=== PATIENT | female | born 1950 | race Caucasian/White ===

== ENCOUNTER 2018-08-08 16:24 | Inpatient (IN) ==
[2018-08-09] MEDS ORDERED: Nitroglycerin 0.4 MG TAB.SUBL SL PRN (16:10)
[2018-08-09] MEDS: *HR* OxyCODONE Oral Soln 5 MG/5 ML UD.LIQ PO PRN ×2 (17:53→23:03)
[2018-08-09] MEDS ORDERED: *HR* Rivaroxaban 10 MG TABLET PO SCH (18:00)
[2018-08-09] MEDS: Sennosides/Docusate Sodium TABLET PO SCH (20:30)
[2018-08-09] MEDS: *HR* Rivaroxaban 10 MG TABLET PO SCH (20:30)
[2018-08-09] MEDS: ALPRAZolam 1 MG TABLET PO SCH (20:31)
[2018-08-09] MEDS: Psyllium 1 PACKET POWD.PACK PO SCH (20:35)
[2018-08-09] MEDS: metroNIDAZOLE 500 MG TABLET PO SCH (23:08)
[2018-08-10] MEDS: *HR* OxyCODONE Oral Soln 5 MG/5 ML UD.LIQ PO PRN (09:05)
[2018-08-10] MEDS: ALPRAZolam 1 MG TABLET PO SCH ×2 (09:06→21:39)
[2018-08-10] MEDS: Sennosides/Docusate Sodium TABLET PO SCH ×2 (09:06→21:39)
[2018-08-10] MEDS: Cholecalciferol (D-3) 1,000 UNIT (25MCG) TABLET PO SCH (09:07)
[2018-08-10] MEDS: metroNIDAZOLE 500 MG TABLET PO SCH ×2 (09:07→15:52)
[2018-08-10] MEDS: Psyllium 1 PACKET POWD.PACK PO SCH ×2 (09:07→21:40)
--- NOTE | 2018-08-10 12:33 | Internal Med History&Physical ---
Date of Encounter: 08/10/18 Time of Encounter: 12:00 Assessment and Plan (1) Perforation of colon as colonoscopy complication Current visit: No Status: Acute Status post primary closure procedure 07/31/2018. Continue present Rx. (2) Depression Current visit: Yes Status: Chronic Continue Cymbalta Qualifiers: Depression Type: unspecified Qualified Code(s): F32.9 - Major depressive disorder, single episode, unspecified (3) Anemia Current visit: Yes Status: Acute Check anemia testing in a.m. Qualifiers: Anemia type: unspecified type Qualified Code(s): D64.9 - Anemia, unspecified (4) Anxiety Current visit: No Status: Chronic Continue prn Xanax Internal Medicine - H&P: HPI Chief complaint: Colon perforation repair Admitted From: Hospital to Hospital Transfer Plans for Post Hospital Care: Home History of present illness: Ms. Lion is a 67 year old female who was discharged to [facility] swing bed after a July 30 [facility] hospitalization. She underwent EGD and colonoscopy on July 30. She had iatrogenic colon perforation during polypectomy procedure. She underwent exploratory laparotomy July 31 with primary closure of the perforation. No colon resection was required. Her postop course was unremarkable for complications. She was discharged to [facility] swing bed for rehabilitation therapy prior to returning to independent living. She denies disorders of her liver gallbladder or exocrine pancreas. She has had diarrhea over the preceding months that seemed to improve when she was prescribed MiraLAX. Past Med Surg Social Fam HX - Past Medical History Medical history: arthritis, hyperlipidemia, kidney stones, valvular heart disease Additional medical history: ANXIETY. VALVULAR DISEASE Psychiatric history: anxiety, depression - Past Surgical History Surgical History: breast surgery, cataract, hysterectomy, other Additional surgical history: Bladder tuck, bilateral phlebectomy, heart cath, rectal sling, bilateral PE - Social History Smoking Status: Never smoker Smokeless Tobacco Status: No Alcohol use: none Drug use: none - Family History Mother Living Status: Hx Family Cardiac Disorders: Yes Father Hx Family Cardiac Disorders: Yes Hx Family Endocrine Disorder: Yes Internal Medicine - H&P: Meds Nitroglycerin [Nitrostat] 0.4 mg SL Q5-10MIN PRN 08/06/15 [History] Cholecalciferol (D-3) [Vitamin D] 1,000 unit PO DAILY 12/24/17 [History] Duloxetine HCl [Cymbalta] 60 mg PO HS 12/24/17 [History] Metoprolol [Lopressor] 25 mg PO BID 12/24/17 [History] Simvastatin [Zocor] 20 mg PO HS 12/24/17 [History] Psyllium [Metamucil Fiber Singles Packet] 1 packet PO BID 07/30/18 [History] Rivaroxaban [Xarelto] 20 mg PO DAILY 07/30/18 [History] Ciprofloxacin [Cipro] 500 mg PO BID tablet 08/09/18 [Rx] Sennosides/Docusate Sodium [Senna Plus] 1 each PO BID tablet 08/09/18 [Rx] metroNIDAZOLE [Flagyl] 500 mg PO Q8HR tablet 08/09/18 [Rx] Allergy/AdvReac Type Severity Reaction Status Date / Time Penicillins Allergy Anaphylaxis Verified 07/01/18 15:07 Sulfa (Sulfonamide Allergy Rash Verified 07/01/18 15:07 Antibiotics) All Systems PM: A 10-system review of systems was performed and is negative for pertinent findings except as documented above in the HPI. Review of systems: Gen.: She states her weight has been stable for several months Cardiovascular: She denies hypertension or [place]. LHC 12/21/2017 showed LMCA free of disease, proximal LAD with 15% stenosis, proximal circumflex with 15% stenosis, and proximal RCA with 20% stenosis. No intervention was done. LVEF was 65%. Echocardiogram 12/25/2017 showed LVEF of 55-60%. There was trace tricuspid regurgitation and pulmonic regurgitation. The interventricular septum and posterior wall thickness measurements were 0.81 and 0.82 cm respectively. E/A ratio was 0.9. The patient reports she is on metoprolol for mitral valve prolapse. There was no MVP noted on the December 2017 echocardiogram. She reports pulmonary embolism December 2017. She states her mother of "massive blood clots". Her mother's sister also from DVT/pulmonary embolism. She was placed on Xarelto at the time of diagnosis and has resumed the medication following surgery. Respiratory: She is a lifelong nonsmoker and denies chronic lung disease GI: As per history of present illness : She had kidney stones remotely. She has had bladder lift surgery. She denies other kidney or bladder disorders. Neurologic: She denies large distribution strokes or seizures. Endocrine: She has hyperlipidemia but denies diabetes or thyroid disease Hematology/oncology: She has mild anemia on postoperative labs. She denies known internal malignancies or other blood disorders. Psychiatric: She has anxiety and depression. She denies other mental health diagnoses. Mus[place] skeletal: She has DJD and back pain. She denies gout. - Constitutional Vitals: Temp Pulse Resp BP Pulse Ox 97.9 F 78 16 111/77 93 08/10/18 07:43 08/10/18 07:43 08/10/18 07:43 08/10/18 07:43 08/10/18 07:43 Exam: Gen.: She is a well-developed well-nourished female resting comfortably in bed who appears in no acute distress HEENT: Head is atraumatic and normocephalic. Eyes: EOMI. There is no scleral icterus. Mouth: Mucosa is moist. Neck: Supple and nontender. There is no thyromegaly or adenopathy noted. Heart: Regular without murmurs gallops or ectopics Lungs: No wheezes or crackles are heard. Abdomen: She has surgical dressings in place. Bowel sounds are diminished. There is mild tenderness to light palpation. Extremities: There is no cyanosis edema or clubbing noted. Dorsalis pedis and posterior tibial pulses are trace to 1+ palpable bilaterally. Neurologic: Mental status: She is talkative and a good historian. Cranial nerves: Smile is symmetric. Forehead wrinkles bilaterally. Tongue protrudes m idline. EOMI. Motor: There is no pronator drift. Cerebellar: Finger to nose is intact bilaterally. Skin: Warm and dry
[2018-08-10] MEDS ORDERED: MOM Conc 10 ML UD.LIQ PO ONE (13:47)
[2018-08-10] MEDS ORDERED: Albuterol 2.5 MG/3 ML NEBULIZER IH PRN (14:15)
[2018-08-10] MEDS: *HR* OxyCODONE/APAP 5/325 TABLET PO PRN ×3 (14:31→22:44)
[2018-08-10] MEDS: *HR* Rivaroxaban 10 MG TABLET PO SCH (21:38)
[2018-08-10] MEDS: Lactobacillus 1 EACH CAP.SPRINK PO SCH (21:39)
[2018-08-11] MEDS: metroNIDAZOLE 500 MG TABLET PO SCH ×3 (00:58→15:43)
[2018-08-11] MEDS: *HR* OxyCODONE/APAP 5/325 TABLET PO PRN ×4 (05:23→21:29)
[2018-08-11 07:51] LABS: Basophils # 0.1 K/mcL (0.0-0.2); Basophils % 0.7 %; Eosinophils # 0.2 K/mcL (0.0-0.6); Eosinophils % 1.5 %; Hematocrit 36.5 % (35.3-44.9); Hemoglobin 12.1 g/dL (11.5-15.4); Lymphocytes # 1.5 K/mcL (0.6-4.6); Lymphocytes % 14.1 %; Mean Corpuscular HGB Conc 33.2 g/dL (31.6-35.5); Mean Corpuscular Hemoglobin 30.6 pg (28.0-33.3); Mean Corpuscular Volume 92.4 fL (83.0-100.0); Mean Platelet Volume 10.5 fL (9.4-12.4); Monocytes # 0.8 K/mcL (0.0-1.3); Monocytes % 7.2 %; Platelet Count 384 K/mcL (140-400); Red Blood Count 3.95 M/mcL (3.82-4.97); Segmented Neutrophils % 75.5 %; White Blood Count 10.5 K/mcL (4.3-11.1)
[2018-08-11] MEDS: Psyllium 1 PACKET POWD.PACK PO SCH ×2 (08:05→21:29)
[2018-08-11] MEDS: Sennosides/Docusate Sodium TABLET PO SCH ×2 (08:06→21:29)
[2018-08-11] MEDS: ALPRAZolam 1 MG TABLET PO SCH ×2 (08:06→21:29)
[2018-08-11] MEDS: Cholecalciferol (D-3) 1,000 UNIT (25MCG) TABLET PO SCH (08:06)
[2018-08-11] MEDS: Lactobacillus 1 EACH CAP.SPRINK PO SCH ×2 (08:06→21:27)
[2018-08-11 09:17] LABS: % Iron Saturation 10 % (15-50); Iron 27 mcg/dL (50-170); Transferrin 186 mg/dL (203-362)
[2018-08-11 09:35] LABS: Ferritin 163 ng/mL (10-120)
[2018-08-11 09:41] LABS: Folate 11.7 ng/mL (3.0-16.0)
[2018-08-11] MEDS ORDERED: MOM Conc 10 ML UD.LIQ PO ONE (10:54)
[2018-08-11] MEDS: *HR* Rivaroxaban 10 MG TABLET PO SCH (21:27)
[2018-08-12] MEDS: metroNIDAZOLE 500 MG TABLET PO SCH ×3 (00:51→15:33)
[2018-08-12] MEDS: Psyllium 1 PACKET POWD.PACK PO SCH ×2 (08:19→20:58)
[2018-08-12] MEDS: *HR* OxyCODONE/APAP 5/325 TABLET PO PRN ×3 (08:20→20:58)
[2018-08-12] MEDS: ALPRAZolam 1 MG TABLET PO SCH ×2 (08:20→20:57)
[2018-08-12] MEDS: Sennosides/Docusate Sodium TABLET PO SCH ×2 (08:20→20:58)
[2018-08-12] MEDS: Lactobacillus 1 EACH CAP.SPRINK PO SCH ×2 (08:21→20:58)
[2018-08-12] MEDS: Cholecalciferol (D-3) 1,000 UNIT (25MCG) TABLET PO SCH (08:22)
--- NOTE | 2018-08-12 11:39 | Internal Med Progress Note ---
Date of Encounter: 08/12/18 Time of Encounter: 11:30 - Assessment and plan (1) Perforation of colon as colonoscopy complication Current Visit: No Status: Acute Assessment and plan: August 12. Status post primary closure procedure 07/31/2018. Continue present Rx. (2) Depression Current Visit: Yes Status: Chronic Assessment and plan: August 12. Continue Cymbalta Qualifiers: Depression Type: unspecified Qualified Code(s): F32.9 - Major depressive disorder, single episode, unspecified (3) Anemia Current Visit: Yes Status: Acute Assessment and plan: August 12. Hemoglobin normalized to 12.1. Anemia testing showed iron 27, transferrin saturation 10%, transferrin 186, ferritin 163, B12 352, and folate 11.7. Start ferrous sulfate with ascorbic acid in a.m. Qualifiers: Anemia type: unspecified type Qualified Code(s): D64.9 - Anemia, unspecified (4) Anxiety Current Visit: No Status: Chronic Assessment and plan: August 12. Continue prn Xanax. (5) Low vitamin D level Current Visit: Yes Status: Acute Assessment and plan: August 12. Vitamin D level was 20. She states she was not regularly taking vitamin D at home. She is now on 1000 international units daily. Continue present Rx. - Subjective Interval history: August 12. She has no new complaints and states she feels significantly improved. - Constitutional Vitals: Temp Pulse Resp BP Pulse Ox 97.9 F 80 16 101/67 95 08/12/18 07:08 08/12/18 07:08 08/12/18 07:08 08/12/18 07:08 08/12/18 07:08 Exam: She is resting comfortably in bed and appears in no acute distress. Her affect is bright and cheerful. I reviewed her medications and lab results. Internal Medicine: Result - Labs CBC & Chem 7: 08/11/18 06:56 Consult Discharge Plan - Plan Referrals: Heaven Welsh CNP [Primary Care Provider] - 1 week
[2018-08-12] MEDS: *HR* Rivaroxaban 10 MG TABLET PO SCH (20:58)
[2018-08-13] MEDS: metroNIDAZOLE 500 MG TABLET PO SCH (00:40)
[2018-08-13] MEDS: *HR* OxyCODONE/APAP 5/325 TABLET PO PRN ×3 (07:24→20:19)
[2018-08-13] MEDS: Ascorbic Acid 500 MG TABLET PO SCH (07:24)
[2018-08-13] MEDS: Sennosides/Docusate Sodium TABLET PO SCH ×2 (08:56→20:20)
[2018-08-13] MEDS: Lactobacillus 1 EACH CAP.SPRINK PO SCH ×2 (08:56→20:20)
[2018-08-13] MEDS: Psyllium 1 PACKET POWD.PACK PO SCH ×2 (08:57→20:19)
[2018-08-13] MEDS: Cholecalciferol (D-3) 1,000 UNIT (25MCG) TABLET PO SCH (08:57)
[2018-08-13] MEDS: ALPRAZolam 1 MG TABLET PO SCH ×2 (08:57→20:19)
[2018-08-13] MEDS: *HR* Rivaroxaban 10 MG TABLET PO SCH (20:18)
[2018-08-14] MEDS: Melatonin 3 MG TABLET PO PRN ×2 (00:05→20:57)
[2018-08-14] MEDS: Ascorbic Acid 500 MG TABLET PO SCH (06:50)
[2018-08-14] MEDS: ALPRAZolam 1 MG TABLET PO SCH ×2 (09:49→20:57)
[2018-08-14] MEDS: Psyllium 1 PACKET POWD.PACK PO SCH ×2 (09:49→20:56)
[2018-08-14] MEDS: Sennosides/Docusate Sodium TABLET PO SCH ×2 (09:49→20:58)
[2018-08-14] MEDS: *HR* OxyCODONE/APAP 5/325 TABLET PO PRN ×2 (09:49→20:57)
[2018-08-14] MEDS: Cholecalciferol (D-3) 1,000 UNIT (25MCG) TABLET PO SCH (09:49)
[2018-08-14] MEDS: Lactobacillus 1 EACH CAP.SPRINK PO SCH ×2 (09:49→20:57)
--- NOTE | 2018-08-14 12:35 | Internal Med Progress Note ---
Date of Encounter: 08/14/18 Time of Encounter: 12:25 - Assessment and plan (1) Perforation of colon as colonoscopy complication Current Visit: No Status: Acute Assessment and plan: August 12. Status post primary closure procedure 07/31/2018. Continue present Rx. August 14. She reports a follow-up visit with her surgeon is scheduled for 08/16/2018. (2) Depression Current Visit: Yes Status: Chronic Assessment and plan: August 12. Continue Cymbalta Qualifiers: Depression Type: unspecified Qualified Code(s): F32.9 - Major depressive disorder, single episode, unspecified (3) Anemia Current Visit: Yes Status: Acute Assessment and plan: August 12. Hemoglobin normalized to 12.1. Anemia testing showed iron 27, transferrin saturation 10%, transferrin 186, ferritin 163, B12 352, and folate 11.7. Start ferrous sulfate with ascorbic acid in a.m. Qualifiers: Anemia type: unspecified type Qualified Code(s): D64.9 - Anemia, u nspecified (4) Anxiety Current Visit: No Status: Chronic Assessment and plan: August 12. Continue prn Xanax. (5) Low vitamin D level Current Visit: Yes Status: Acute Assessment and plan: August 12. Vitamin D level was 20. She states she was not regularly taking vitamin D at home. She is now on 1000 international units daily. Continue present Rx. - Subjective Interval history: August 12. She has no new complaints and states she feels significantly improved. August 14. She has no new complaints. She has had multiple bowel movements in the past 3 days and feels significantly improved. - Constitutional Vitals: Temp Pulse Resp BP Pulse Ox 97.6 F 75 16 99/68 96 08/14/18 07:42 08/14/18 07:42 08/14/18 07:42 08/14/18 07:42 08/14/18 07:42 Exam: She is resting comfortably in bed and appears in no acute distress. Her affect is bright and cheerful. I reviewed her medications and lab results. Internal Medicine: Result - Labs CBC & Chem 7: 08/11/18 06:56 Consult Discharge Plan - Plan Referrals: Heaven Welsh, SARINA [Primary Care Provider] - 1 week
[2018-08-14] MEDS: *HR* Rivaroxaban 10 MG TABLET PO SCH (20:57)
[2018-08-15] MEDS: Ascorbic Acid 500 MG TABLET PO SCH (05:57)
[2018-08-15] MEDS: Psyllium 1 PACKET POWD.PACK PO SCH ×2 (09:41→20:00)
[2018-08-15] MEDS: *HR* OxyCODONE/APAP 5/325 TABLET PO PRN ×2 (09:41→19:59)
[2018-08-15] MEDS: Lactobacillus 1 EACH CAP.SPRINK PO SCH ×2 (09:41→20:00)
[2018-08-15] MEDS: Sennosides/Docusate Sodium TABLET PO SCH ×2 (09:41→20:00)
[2018-08-15] MEDS: ALPRAZolam 1 MG TABLET PO SCH ×2 (09:41→20:00)
[2018-08-15] MEDS: Cholecalciferol (D-3) 1,000 UNIT (25MCG) TABLET PO SCH (09:42)
[2018-08-15] MEDS: *HR* Rivaroxaban 10 MG TABLET PO SCH (19:59)
[2018-08-16] MEDS: Ascorbic Acid 500 MG TABLET PO SCH (06:39)
[2018-08-16] MEDS: *HR* OxyCODONE/APAP 5/325 TABLET PO PRN ×3 (06:41→21:17)
[2018-08-16] MEDS: Psyllium 1 PACKET POWD.PACK PO SCH ×2 (08:26→21:16)
[2018-08-16] MEDS: ALPRAZolam 1 MG TABLET PO SCH ×2 (08:26→21:17)
[2018-08-16] MEDS: Sennosides/Docusate Sodium TABLET PO SCH ×2 (08:26→21:17)
[2018-08-16] MEDS: Lactobacillus 1 EACH CAP.SPRINK PO SCH ×2 (08:26→21:17)
[2018-08-16] MEDS: Cholecalciferol (D-3) 1,000 UNIT (25MCG) TABLET PO SCH (08:26)
[2018-08-16] MEDS: *HR* Rivaroxaban 10 MG TABLET PO SCH (21:16)
[2018-08-16] MEDS: Melatonin 3 MG TABLET PO PRN (21:17)
[2018-08-16] MEDS ORDERED: Simethicone 80 MG TAB.CHEW PO PRN (23:06)
[2018-08-17] MEDS: Ascorbic Acid 500 MG TABLET PO SCH (05:54)
[2018-08-17] MEDS: *HR* OxyCODONE/APAP 5/325 TABLET PO PRN ×3 (05:57→20:01)
[2018-08-17] MEDS: Sennosides/Docusate Sodium TABLET PO SCH ×2 (08:16→20:00)
[2018-08-17] MEDS: Cholecalciferol (D-3) 1,000 UNIT (25MCG) TABLET PO SCH (08:16)
[2018-08-17] MEDS: Lactobacillus 1 EACH CAP.SPRINK PO SCH ×2 (08:16→20:00)
[2018-08-17] MEDS: ALPRAZolam 1 MG TABLET PO SCH ×2 (08:17→20:00)
[2018-08-17] MEDS: Psyllium 1 PACKET POWD.PACK PO SCH ×2 (08:17→20:01)
--- NOTE | 2018-08-17 15:46 | Internal Med Progress Note ---
Date of Encounter: 08/17/18 Time of Encounter: 15:38 - Assessment and plan (1) Perforation of colon as colonoscopy complication Current Visit: No Status: Acute Assessment and plan: August 12. Status post primary closure procedure 07/31/2018. Continue present Rx. August 14. She reports a follow-up visit with her surgeon is scheduled for 08/16/2018. August 17. She reports ishmael removed at the surgeon's office visit yesterday. Anticipate discharge home tomorrow. (2) Depression Current Visit: Yes Status: Chronic Assessment and plan: August 12. Continue Cymbalta Qualifiers: Depression Type: unspecified Qualified Code(s): F32.9 - Major depressive disorder, single episode, unspecified (3) Anemia Current Visit: Yes Status: Acute Assessment and plan: August 12. Hemoglobin normalized to 12.1. Anemia testing showed iron 27, transferrin saturation 10%, transferrin 186, ferritin 163, B12 352, and folate 11.7. Start ferrous sulfate with ascorbic acid in a.m. Qualifiers: Anemia type: unspecified type Qualified Code(s): D64.9 - Anemia, unspecified (4) Anxiety Current Visit: No Status: Chronic Assessment and plan: August 12. Continue prn Xanax. (5) Low vitamin D level Current Visit: Yes Status: Acute Assessment and plan: August 12. Vitamin D level was 20. She states she was not regularly taking vitamin D at home. She is now on 1000 international units daily. Continue present Rx. - Subjective Interval history: August 12. She has no new complaints and states she feels significantly improved. August 14. She has no new complaints. She has had multiple bowel movements in the past 3 days and feels significantly improved. August 17. She has no new complaints and feels well - Constitutional Vitals: Temp Pulse Resp BP Pulse Ox 98.1 F 79 18 115/78 96 08/17/18 06:00 08/17/18 06:00 08/17/18 06:00 08/17/18 06:00 08/17/18 06:00 Exam: She is resting comfortably in bed and appears in no acute distress. Her affect is bright and cheerful. I reviewed her medications and past lab results. Internal Medicine: Result - Labs CBC & Chem 7: 08/11/18 06:56 Consult Discharge Plan - Plan Referrals: Heaven Welsh CNP [Primary Care Provider] - 1 week
[2018-08-17] MEDS: *HR* Rivaroxaban 10 MG TABLET PO SCH (19:59)
[2018-08-17] MEDS: Melatonin 3 MG TABLET PO PRN (20:01)
[2018-08-18] MEDS: Ascorbic Acid 500 MG TABLET PO SCH (06:29)
--- NOTE | 2018-08-18 08:16 | Discharge Summary ---
Date of Encounter: 08/18/18 Time of Encounter: 08:08 - Discharge Diagnosis (1) Perforation of colon as colonoscopy complication Priority: Primary Status: Acute (2) Depression Priority: Secondary Status: Chronic Qualifiers: Depression Type: unspecified Qualified Code(s): F32.9 - Major depressive disorder, single episode, unspecified (3) Anemia Priority: Secondary Status: Acute Qualifiers: Anemia type: iron deficiency Iron deficiency anemia type: unspecified iron deficiency Qualified Code(s): D50.9 - Iron deficiency anemia, unspecified (4) Anxiety Priority: Secondary Status: Chronic (5) Low vitamin D level Priority: Secondary Status: Acute Hospital course: Ms. Lion is a 67 year old female who was discharged to [facility] swing bed after a July 30 [facility] hospitalization. She underwent EGD and colonoscopy on July 30. She had iatrogenic colon perforation during polypectomy procedure. She underwent exploratory laparotomy July 31 with primary closure of the perforation. No colon resection was required. Her postop course was unremarkable for complications. She was discharged to [facility] swing bed for rehabilitation therapy prior to returning to independent living. Initial orders were written by the discharging physicians at [facility]. I saw her on August 10 and performed the swing bed history and physical. She completed the prescribed course of oral antibiotics. There were no complications during swing bed. PT and OT evaluations with ongoing intervention were done. She made satisfactory progress. She declined home health services at discharge. Anemia testing showed iron 27, transferrin saturation 10%, transferrin 186, ferritin 163, B12 352, and folate 11.7. She was started on ferrous sulfate with ascorbic acid and these will be continued at discharge. She was started on vitamin D 1000 international units daily and will continue this at home. On August 18 she was stable for discharge home. She will follow with her PCP Heaven Welsh CNP within 1 week. She will follow up with her surgeons as directed. - Time Spent with Patient Total time spent providing and/or coordinating discharge services: - Discharge Medications Prescriptions: New Ferrous Sulfate 325 mg PO 0630 #30 tablet Ascorbic Acid [Vitamin C] 500 mg PO 0630 #30 tablet Continued Nitroglycerin [Nitrostat] 0.4 mg SL Q5-10MIN PRN PRN Reason: Chest Pain Duloxetine HCl [Cymbalta] 60 mg PO HS Simvastatin [Zocor] 20 mg PO HS Metoprolol [Lopressor] 25 mg PO BID Cholecalciferol (D-3) [Vitamin D] 1,000 unit PO DAILY Rivaroxaban [Xarelto] 20 mg PO DAILY Psyllium [Metamucil Fiber Singles Packet] 1 packet PO BID Sennosides/Docusate Sodium [Senna Plus] 1 each PO BID tablet Discontinued metroNIDAZOLE [Flagyl] 500 mg PO Q8HR tablet Ciprofloxacin [Cipro] 500 mg PO BID tablet Home Medications: Nitroglycerin [Nitrostat] 0.4 mg SL Q5-10MIN PRN 08/06/15 [History] Cholecalciferol (D-3) [Vitamin D] 1,000 unit PO DAILY 12/24/17 [History] Duloxetine HCl [Cymbalta] 60 mg PO HS 12/24/17 [History] Metoprolol [Lopressor] 25 mg PO BID 12/24/17 [History] Simvastatin [Zocor] 20 mg PO HS 12/24/17 [History] Psyllium [Metamucil Fiber Singles Packet] 1 packet PO BID 07/30/18 [History] Rivaroxaban [Xarelto] 20 mg PO DAILY 07/30/18 [History] Sennosides/Docusate Sodium [Senna Plus] 1 each PO BID tablet 08/09/18 [Rx] Ascorbic Acid [Vitamin C] 500 mg PO 0630 #30 tablet 08/18/18 [Rx] Ferrous Sulfate 325 mg PO 0630 #30 tablet 08/18/18 [Rx] Allergies/Adverse Reactions: Allergy/AdvReac Type Severity Reaction Status Date / Time Penicillins Allergy Anaphylaxis Verified 07/01/18 15:07 Sulfa (Sulfonamide Allergy Rash Verified 07/01/18 15:07 Antibiotics) Date of admission: 08/09/18 16:25 Primary care physician: Heaven Welsh Consults: 08/09/18 15:59 Consult to Occupational Therapy [CONS] Routine Comment: Evaluate, Develop, and Implement plan of care Reason for Consult: Evaluate, Develop, and Implement plan of care Does patient have active BEDREST order?: No Is patient medically & hemodynamically stable?: Yes Patient assessed for mobility or mobilized this visit?: No Consult to Physical Therapy [CONS] Routine Comment: Evaluate, Develop, and Implement plan of care Reason for Consult: Evaluate, Develop, and Implement plan of care Does patient have active BEDREST order?: No Is patient medically & hemodynamically stable?: Yes Patient assessed for mobility or mobilized this visit?: No Consult to Camera Machinist [CONS] Routine Reason for SW Consult: Discharge Planning - Constitutional Vitals: Temp Pulse Resp BP Pulse Ox 98.3 F 77 16 113/76 97 08/18/18 07:29 08/18/18 07:29 08/18/18 07:29 08/18/18 07:29 08/18/18 07:29 - Patient Status Disposition: Home, Self-Care - Discharge Instructions Follow Up With: Heaven Welsh CNP [Primary Care Provider] - 1 week - Diet and Activity Activity: resume usual activities as tolerated Diet: advance to your usual diet
[2018-08-18] MEDS: Psyllium 1 PACKET POWD.PACK PO SCH (09:29)
[2018-08-18 09:30] VITALS: BP 117/78
[2018-08-18] MEDS: Lactobacillus 1 EACH CAP.SPRINK PO SCH (09:30)
[2018-08-18] MEDS: Sennosides/Docusate Sodium TABLET PO SCH (09:30)
[2018-08-18] MEDS: Cholecalciferol (D-3) 1,000 UNIT (25MCG) TABLET PO SCH (09:31)
[2018-08-18] MEDS: ALPRAZolam 1 MG TABLET PO SCH (09:31)
== END 2018-08-18 09:57 | disposition home or self-care (01) | DRG 950 ==
LOC: INPPIK 08-09 16:25
PROVIDERS: ADMIT Internal Medicine; ATTEND Internal Medicine

== ENCOUNTER 2019-02-09 10:50 | Inpatient (IN) ==
[2019-02-09] MEDS ORDERED: Nitroglycerin 0.4 MG TAB.SUBL SL PRN (16:12)
[2019-02-09] MEDS: Ascorbic Acid 500 MG TABLET PO SCH (18:07)
[2019-02-09] MEDS: Famotidine 20 MG TABLET PO SCH (19:49)
[2019-02-09] MEDS: *HR* OxyCODONE Immed Rel 5 MG TABLET PO PRN (19:49)
[2019-02-09] MEDS: ALPRAZolam 1 MG TABLET PO PRN (19:49)
[2019-02-10 06:42] LABS: Basophils # 0.1 K/mcL (0.0-0.2); Basophils % 0.6 %; Eosinophils # 0.1 K/mcL (0.0-0.6); Eosinophils % 1.3 %; Hematocrit 30.8 % (35.3-44.9); Hemoglobin 9.8 g/dL (11.5-15.4); Immature Granulocytes % 1.2 % (0-4); Lymphocytes # 2.4 K/mcL (0.6-4.6); Lymphocytes % 23.2 %; Mean Corpuscular HGB Conc 31.8 g/dL (31.6-35.5); Mean Corpuscular Hemoglobin 30.7 pg (28.0-33.3); Mean Corpuscular Volume 96.6 fL (83.0-100.0); Mean Platelet Volume 11.4 fL (9.4-12.4); Monocytes # 0.7 K/mcL (0.0-1.3); Monocytes % 6.7 %; Platelet Count 241 K/mcL (140-400); Red Blood Count 3.19 M/mcL (3.82-4.97); Red Cell Distribution Width 14.1 % (11.5-14.5); White Blood Count 10.4 K/mcL (4.3-11.1)
[2019-02-10] MEDS: *HR* OxyCODONE Immed Rel 5 MG TABLET PO PRN ×3 (06:43→23:47)
[2019-02-10 06:55] LABS: BUN/Creatinine Ratio 16 (6-26); Blood Urea Nitrogen 11 mg/dL (8-23); Calcium 8.8 mg/dL (8.6-10.3); Carbon Dioxide 30 mEq/L (23-29); Chloride 99 mEq/L (98-107); Glucose 121 mg/dL (70-105); Osmolality,Calculated 283 (280-300); Potassium 4.2 mEq/L (3.5-5.1); Sodium 136 mEq/L (136-145); eGFR For African Americans > 60 (> 60); eGFR For Non-African Americans > 60 (> 60)
[2019-02-10] MEDS: Multivit/Ca/Min/Fe/FA 1 TAB TABLET PO SCH (09:56)
[2019-02-10] MEDS: Famotidine 20 MG TABLET PO SCH ×2 (09:56→19:47)
[2019-02-10] MEDS: Ascorbic Acid 500 MG TABLET PO SCH ×2 (09:56→16:17)
[2019-02-10] MEDS: *HR* Rivaroxaban 10 MG TABLET PO SCH (09:56)
[2019-02-10] MEDS: Sennosides/Docusate Sodium TABLET PO SCH (19:47)
[2019-02-10] MEDS: Lactulose Oral Soln 20 GM/30 ML UDC PO PRN (19:47)
[2019-02-10] MEDS: ALPRAZolam 1 MG TABLET PO PRN (23:47)
[2019-02-11] MEDS: Famotidine 20 MG TABLET PO SCH ×2 (08:39→21:09)
[2019-02-11] MEDS: Multivit/Ca/Min/Fe/FA 1 TAB TABLET PO SCH (08:39)
[2019-02-11] MEDS: Ascorbic Acid 500 MG TABLET PO SCH ×2 (08:39→17:13)
[2019-02-11] MEDS: *HR* Rivaroxaban 10 MG TABLET PO SCH (08:39)
[2019-02-11] MEDS: *HR* OxyCODONE Immed Rel 5 MG TABLET PO PRN ×2 (08:39→21:09)
[2019-02-11] MEDS: Lactulose Oral Soln 20 GM/30 ML UDC PO PRN (08:40)
[2019-02-11] MEDS: Sennosides/Docusate Sodium TABLET PO SCH ×2 (08:40→21:09)
[2019-02-11] MEDS: ALPRAZolam 1 MG TABLET PO PRN (21:08)
[2019-02-12] MEDS: *HR* Rivaroxaban 10 MG TABLET PO SCH (09:51)
[2019-02-12] MEDS: Ascorbic Acid 500 MG TABLET PO SCH ×2 (09:51→16:23)
[2019-02-12] MEDS: Sennosides/Docusate Sodium TABLET PO SCH ×2 (09:51→22:12)
[2019-02-12] MEDS: Multivit/Ca/Min/Fe/FA 1 TAB TABLET PO SCH (09:52)
[2019-02-12] MEDS: Famotidine 20 MG TABLET PO SCH ×2 (09:52→22:14)
[2019-02-12] MEDS: *HR* OxyCODONE Immed Rel 5 MG TABLET PO PRN ×3 (09:54→22:14)
[2019-02-12] MEDS: ALPRAZolam 1 MG TABLET PO PRN (22:13)
[2019-02-13] MEDS: Famotidine 20 MG TABLET PO SCH ×2 (08:30→21:13)
[2019-02-13] MEDS: ALPRAZolam 1 MG TABLET PO PRN ×2 (08:30→21:12)
[2019-02-13] MEDS: Multivit/Ca/Min/Fe/FA 1 TAB TABLET PO SCH (08:30)
[2019-02-13] MEDS: *HR* OxyCODONE Immed Rel 5 MG TABLET PO PRN ×3 (08:30→21:13)
[2019-02-13] MEDS: Sennosides/Docusate Sodium TABLET PO SCH ×2 (08:30→21:12)
[2019-02-13] MEDS: *HR* Rivaroxaban 10 MG TABLET PO SCH (08:30)
[2019-02-13] MEDS: Ascorbic Acid 500 MG TABLET PO SCH ×2 (08:31→16:46)
[2019-02-14] MEDS: Sennosides/Docusate Sodium TABLET PO SCH ×2 (09:02→21:49)
[2019-02-14] MEDS: *HR* Rivaroxaban 10 MG TABLET PO SCH (09:02)
[2019-02-14] MEDS: Ascorbic Acid 500 MG TABLET PO SCH ×2 (09:02→16:02)
[2019-02-14] MEDS: Multivit/Ca/Min/Fe/FA 1 TAB TABLET PO SCH (09:02)
[2019-02-14] MEDS: Famotidine 20 MG TABLET PO SCH ×2 (09:02→21:49)
[2019-02-14] MEDS: *HR* OxyCODONE Immed Rel 5 MG TABLET PO PRN ×3 (09:07→21:50)
[2019-02-14] MEDS: ALPRAZolam 1 MG TABLET PO PRN ×2 (09:08→21:50)
[2019-02-15] MEDS: *HR* OxyCODONE Immed Rel 5 MG TABLET PO PRN ×3 (06:57→20:24)
[2019-02-15] MEDS: *HR* Rivaroxaban 10 MG TABLET PO SCH (09:06)
[2019-02-15] MEDS: Multivit/Ca/Min/Fe/FA 1 TAB TABLET PO SCH (09:06)
[2019-02-15] MEDS: ALPRAZolam 1 MG TABLET PO PRN ×2 (09:06→21:57)
[2019-02-15] MEDS: Sennosides/Docusate Sodium TABLET PO SCH ×2 (09:06→20:24)
[2019-02-15] MEDS: Ascorbic Acid 500 MG TABLET PO SCH ×2 (09:06→16:44)
[2019-02-15] MEDS: Famotidine 20 MG TABLET PO SCH ×2 (09:06→20:25)
[2019-02-16] MEDS: *HR* OxyCODONE Immed Rel 5 MG TABLET PO PRN ×4 (03:59→22:24)
[2019-02-16] MEDS: Sennosides/Docusate Sodium TABLET PO SCH ×2 (08:50→21:45)
[2019-02-16] MEDS: Famotidine 20 MG TABLET PO SCH ×2 (08:50→21:44)
[2019-02-16] MEDS: *HR* Rivaroxaban 10 MG TABLET PO SCH (08:50)
[2019-02-16] MEDS: Ascorbic Acid 500 MG TABLET PO SCH ×2 (08:50→17:07)
[2019-02-16] MEDS: Multivit/Ca/Min/Fe/FA 1 TAB TABLET PO SCH (08:51)
[2019-02-16] MEDS: ALPRAZolam 1 MG TABLET PO PRN ×2 (11:08→21:45)
[2019-02-17] MEDS: *HR* OxyCODONE Immed Rel 5 MG TABLET PO PRN ×3 (05:39→20:55)
[2019-02-17] MEDS: Sennosides/Docusate Sodium TABLET PO SCH (08:50)
[2019-02-17] MEDS: Ascorbic Acid 500 MG TABLET PO SCH ×2 (08:50→18:07)
[2019-02-17] MEDS: Multivit/Ca/Min/Fe/FA 1 TAB TABLET PO SCH (08:50)
[2019-02-17] MEDS: Famotidine 20 MG TABLET PO SCH ×2 (08:50→20:54)
[2019-02-17] MEDS: *HR* Rivaroxaban 10 MG TABLET PO SCH (08:51)
[2019-02-17] MEDS: ALPRAZolam 1 MG TABLET PO PRN ×2 (08:58→20:54)
[2019-02-18] MEDS: Ascorbic Acid 500 MG TABLET PO SCH ×2 (07:45→18:58)
[2019-02-18] MEDS: Psyllium 1 PACKET POWD.PACK GTUBE SCH (07:45)
[2019-02-18] MEDS: *HR* Rivaroxaban 10 MG TABLET PO SCH (07:45)
[2019-02-18] MEDS: Famotidine 20 MG TABLET PO SCH ×2 (07:46→20:53)
[2019-02-18] MEDS: Multivit/Ca/Min/Fe/FA 1 TAB TABLET PO SCH (07:46)
[2019-02-18] MEDS: ALPRAZolam 1 MG TABLET PO PRN ×2 (11:30→20:54)
[2019-02-18] MEDS: *HR* OxyCODONE Immed Rel 5 MG TABLET PO PRN ×2 (11:30→20:54)
[2019-02-18] MEDS: Sennosides/Docusate Sodium TABLET PO PRN (20:57)
[2019-02-19] MEDS: *HR* OxyCODONE Immed Rel 5 MG TABLET PO PRN ×3 (04:47→21:11)
[2019-02-19] MEDS: *HR* Rivaroxaban 10 MG TABLET PO SCH (09:01)
[2019-02-19] MEDS: Multivit/Ca/Min/Fe/FA 1 TAB TABLET PO SCH (09:01)
[2019-02-19] MEDS: Ascorbic Acid 500 MG TABLET PO SCH ×2 (09:01→17:33)
[2019-02-19] MEDS: Psyllium 1 PACKET POWD.PACK GTUBE SCH (09:01)
[2019-02-19] MEDS: Famotidine 20 MG TABLET PO SCH ×2 (09:01→21:11)
[2019-02-19] MEDS: ALPRAZolam 1 MG TABLET PO PRN ×2 (09:50→21:11)
[2019-02-19] MEDS ORDERED: Methocarbamol 500 MG TABLET PO PRN (16:13)
[2019-02-20] MEDS: *HR* OxyCODONE Immed Rel 5 MG TABLET PO PRN ×3 (05:47→21:08)
[2019-02-20] MEDS: Ascorbic Acid 500 MG TABLET PO SCH ×2 (08:16→17:20)
[2019-02-20] MEDS: Famotidine 20 MG TABLET PO SCH ×2 (08:16→21:08)
[2019-02-20] MEDS: Multivit/Ca/Min/Fe/FA 1 TAB TABLET PO SCH (08:16)
[2019-02-20] MEDS: Psyllium 1 PACKET POWD.PACK GTUBE SCH (08:17)
[2019-02-20] MEDS: *HR* Rivaroxaban 10 MG TABLET PO SCH (08:17)
[2019-02-20] MEDS: ALPRAZolam 1 MG TABLET PO PRN ×2 (13:16→21:07)
[2019-02-21] MEDS: *HR* OxyCODONE Immed Rel 5 MG TABLET PO PRN ×4 (04:04→23:15)
[2019-02-21] MEDS: Famotidine 20 MG TABLET PO SCH ×2 (07:50→21:20)
[2019-02-21] MEDS: *HR* Rivaroxaban 10 MG TABLET PO SCH (07:50)
[2019-02-21] MEDS: Multivit/Ca/Min/Fe/FA 1 TAB TABLET PO SCH (07:50)
[2019-02-21] MEDS: Ascorbic Acid 500 MG TABLET PO SCH ×2 (07:50→16:48)
[2019-02-21] MEDS: ALPRAZolam 1 MG TABLET PO PRN ×2 (07:58→21:20)
[2019-02-21] MEDS: Psyllium 1 PACKET POWD.PACK GTUBE SCH (07:58)
[2019-02-22] MEDS: Ascorbic Acid 500 MG TABLET PO SCH ×2 (09:13→17:40)
[2019-02-22] MEDS: Famotidine 20 MG TABLET PO SCH ×2 (09:13→20:56)
[2019-02-22] MEDS: Psyllium 1 PACKET POWD.PACK GTUBE SCH (09:13)
[2019-02-22] MEDS: *HR* OxyCODONE Immed Rel 5 MG TABLET PO PRN ×2 (09:13→23:05)
[2019-02-22] MEDS: *HR* Rivaroxaban 10 MG TABLET PO SCH (09:13)
[2019-02-22] MEDS: Multivit/Ca/Min/Fe/FA 1 TAB TABLET PO SCH (09:13)
[2019-02-22] MEDS: Sennosides/Docusate Sodium TABLET PO PRN (09:16)
[2019-02-22] MEDS: ALPRAZolam 1 MG TABLET PO PRN ×2 (09:21→20:56)
[2019-02-23] MEDS: Multivit/Ca/Min/Fe/FA 1 TAB TABLET PO SCH (08:49)
[2019-02-23] MEDS: Ascorbic Acid 500 MG TABLET PO SCH ×2 (08:49→17:46)
[2019-02-23] MEDS: *HR* Rivaroxaban 10 MG TABLET PO SCH (08:50)
[2019-02-23] MEDS: *HR* OxyCODONE Immed Rel 5 MG TABLET PO PRN ×2 (08:50→20:16)
[2019-02-23] MEDS: ALPRAZolam 1 MG TABLET PO PRN ×2 (08:51→20:16)
[2019-02-23] MEDS: Psyllium 1 PACKET POWD.PACK GTUBE SCH (08:51)
[2019-02-23] MEDS: Famotidine 20 MG TABLET PO SCH ×2 (08:51→20:16)
[2019-02-23] MEDS: Sennosides/Docusate Sodium TABLET PO PRN (20:15)
[2019-02-23] MEDS: Melatonin 3 MG TABLET PO PRN (20:16)
[2019-02-24] MEDS: *HR* Rivaroxaban 10 MG TABLET PO SCH (09:40)
[2019-02-24] MEDS: Famotidine 20 MG TABLET PO SCH ×2 (09:42→20:49)
[2019-02-24] MEDS: Multivit/Ca/Min/Fe/FA 1 TAB TABLET PO SCH (09:42)
[2019-02-24] MEDS: Ascorbic Acid 500 MG TABLET PO SCH ×2 (09:43→16:00)
[2019-02-24] MEDS: ALPRAZolam 1 MG TABLET PO PRN ×2 (09:43→23:08)
[2019-02-24] MEDS: *HR* OxyCODONE Immed Rel 5 MG TABLET PO PRN ×3 (09:44→23:07)
[2019-02-24] MEDS: Psyllium 1 PACKET POWD.PACK GTUBE SCH (09:44)
[2019-02-24] MEDS: Melatonin 3 MG TABLET PO PRN (23:07)
[2019-02-25] MEDS: *HR* OxyCODONE Immed Rel 5 MG TABLET PO PRN ×3 (06:50→20:27)
[2019-02-25] MEDS: Ascorbic Acid 500 MG TABLET PO SCH ×2 (08:51→16:20)
[2019-02-25] MEDS: *HR* Rivaroxaban 10 MG TABLET PO SCH (08:51)
[2019-02-25] MEDS: Psyllium 1 PACKET POWD.PACK GTUBE SCH (08:51)
[2019-02-25] MEDS: Famotidine 20 MG TABLET PO SCH ×2 (08:52→20:28)
[2019-02-25] MEDS: Multivit/Ca/Min/Fe/FA 1 TAB TABLET PO SCH (08:52)
[2019-02-25] MEDS: ALPRAZolam 1 MG TABLET PO PRN (20:28)
[2019-02-25] MEDS: Melatonin 3 MG TABLET PO PRN (20:30)
[2019-02-26] MEDS: *HR* OxyCODONE Immed Rel 5 MG TABLET PO PRN ×2 (03:21→20:54)
[2019-02-26] MEDS: Famotidine 20 MG TABLET PO SCH ×2 (08:52→20:54)
[2019-02-26] MEDS: Psyllium 1 PACKET POWD.PACK GTUBE SCH (08:52)
[2019-02-26] MEDS: *HR* Rivaroxaban 10 MG TABLET PO SCH (08:53)
[2019-02-26] MEDS: Multivit/Ca/Min/Fe/FA 1 TAB TABLET PO SCH (08:53)
[2019-02-26] MEDS: Ascorbic Acid 500 MG TABLET PO SCH ×2 (08:53→16:26)
[2019-02-26] MEDS: ALPRAZolam 1 MG TABLET PO PRN ×2 (08:58→20:55)
[2019-02-26] MEDS: Sennosides/Docusate Sodium TABLET PO PRN (20:55)
[2019-02-27] MEDS: Melatonin 3 MG TABLET PO PRN ×2 (00:26→22:12)
[2019-02-27] MEDS: Multivit/Ca/Min/Fe/FA 1 TAB TABLET PO SCH (09:04)
[2019-02-27] MEDS: *HR* OxyCODONE Immed Rel 5 MG TABLET PO PRN ×2 (09:04→22:14)
[2019-02-27] MEDS: *HR* Rivaroxaban 10 MG TABLET PO SCH (09:05)
[2019-02-27] MEDS: ALPRAZolam 1 MG TABLET PO PRN ×2 (09:05→22:11)
[2019-02-27] MEDS: Famotidine 20 MG TABLET PO SCH ×2 (09:05→22:12)
[2019-02-27] MEDS: Psyllium 1 PACKET POWD.PACK GTUBE SCH (09:05)
[2019-02-27] MEDS: Ascorbic Acid 500 MG TABLET PO SCH ×2 (09:05→16:38)
[2019-02-28 07:15] VITALS: BP 118/77
[2019-02-28] MEDS: Ascorbic Acid 500 MG TABLET PO SCH (08:22)
[2019-02-28] MEDS: Psyllium 1 PACKET POWD.PACK GTUBE SCH (08:22)
[2019-02-28] MEDS: Multivit/Ca/Min/Fe/FA 1 TAB TABLET PO SCH (08:24)
[2019-02-28] MEDS: Famotidine 20 MG TABLET PO SCH (08:24)
[2019-02-28] MEDS: *HR* OxyCODONE Immed Rel 5 MG TABLET PO PRN (08:24)
[2019-02-28] MEDS: *HR* Rivaroxaban 10 MG TABLET PO SCH (08:25)
[2019-02-28] MEDS: ALPRAZolam 1 MG TABLET PO PRN (11:17)
== END 2019-02-28 15:15 | disposition home health service (06) | DRG 561 ==
LOC: INPPIK 15:41
PROVIDERS: ADMIT Family Medicine; ATTEND Family Medicine